=== PATIENT | male | born 1950 | race Caucasian/White ===

== ENCOUNTER 2022-03-17 09:37 | Outpatient (CLI) | payer MEDICARE, SELFPAY ==
[2022-03-17 14:30] LABS: Albumin* 4.2 g/dL (3.3-5.0); Chloride* 102 mmol/L (96-114); Potassium* 4.4 mmol/L (3.6-5.1); Sodium* 140 mmol/L (135-149)
[2022-03-17 14:32] LABS: Carbon Dioxide* 28 mmol/L (20-32); Cholesterol* 131 mg/dL (90-199); Creatinine* 0.9 mg/dL (0.5-1.5); Estimated Glomerular Filt Rate 90 ml/min
[2022-03-17 14:33] LABS: Alanine Aminotransferase* 21 U/L (4-50); Alkaline Phosphatase* 83 U/L (40-150); Aspartate Amino Transferase* 23 U/L (12-35); Bilirubin Total* 0.4 mg/dL (0.1-1.5); Blood Urea Nitrogen* 18 mg/dL (7-30); Calcium* 9.5 mg/dL (8.4-10.6); Glucose* 117 mg/dL (60-115); Total Protein* 7.3 g/dL (6.0-8.3); Triglycerides* 195 mg/dL (40-149)
[2022-03-17 14:34] LABS: HDL Cholesterol* 32 mg/dL (>=40); LDL Cholesterol Calculated 60 mg/dL (<100)
[2022-03-17 15:04] LABS: PSA Screen* 2.12 ng/mL (0.10-4.00)
== END 2022-03-17 09:38 | disposition home or self-care (01) ==
PROVIDERS: PCP Family Medicine; Visit Provider Physician Assistant Medical
DX: E11.9 Type 2 diabetes mellitus without complications (principal); E78.5 Hyperlipidemia, unspecified; I10 Essential (primary) hypertension
CPT/HCPCS: 80053; 80061; 84153

== ENCOUNTER 2023-04-26 09:18 | Outpatient (CLI) | payer MEDICARE, SELFPAY | END 2023-04-26 09:19 | disposition home or self-care (01) | PROVIDERS: PCP Physician Assistant Medical; Visit Provider Physician Assistant Medical | DX: E11.9 Type 2 diabetes mellitus without complications (principal); I10 Essential (primary) hypertension; E78.5 Hyperlipidemia, unspecified | CPT/HCPCS: 80053; 82043; 82570 ==

== ENCOUNTER 2023-10-26 09:46 | Outpatient (CLI) | payer MEDICARE, SELFPAY | END 2023-10-26 09:47 | disposition home or self-care (01) | LOC: NFLDREF 10-28 06:07 | PROVIDERS: PCP Physician Assistant Medical; Referring Provider Physician Assistant Medical; Visit Provider Physician Assistant Medical | DX: R97.20 Elevated prostate specific antigen [PSA] (principal); E11.9 Type 2 diabetes mellitus without complications; I10 Essential (primary) hypertension; E78.2 Mixed hyperlipidemia | CPT/HCPCS: 80053; 80061; G0103 ==

== ENCOUNTER 2024-10-29 10:11 | Outpatient (CLI) | payer MEDICARE, SELFPAY | END 2024-10-29 10:12 | disposition home or self-care (01) | LOC: NFLDREF 11-02 00:30 | PROVIDERS: PCP Physician Assistant Medical; Referring Provider Physician Assistant Medical; Visit Provider Physician Assistant Medical | DX: E78.2 Mixed hyperlipidemia (principal); I10 Essential (primary) hypertension; E11.9 Type 2 diabetes mellitus without complications; Z86.73 Personal history of transient ischemic attack (TIA), and cerebral infarction without residual deficits; Z79.84 Long term (current) use of oral hypoglycemic drugs; Z12.5 Encounter for screening for malignant neoplasm of prostate; Z13.29 Encounter for screening for other suspected endocrine disorder | CPT/HCPCS: 80053; 80061; 82043; 82570; 84443; G0103 ==